=== PATIENT | female | born 1945 | race African-American/Black ===

== ENCOUNTER 2019-11-16 12:52 | Observation (INO) ==
[2019-11-16] MEDS ORDERED: methylPREDNISolone SOD SUC 125 MG/2 ML VIAL IV STA (13:24)
[2019-11-16] MEDS ORDERED: ONDANSETRON 4 MG/2 ML VIAL IV STA (13:24)
[2019-11-16] MEDS ORDERED: ALBUTEROL/IPRATROPIUM 3 ML NEB RESP TX STA (13:24)
[2019-11-16] MEDS ORDERED: FUROSEMIDE 100 MG/10 ML VIAL IV STA (13:24)
[2019-11-16 14:08] LABS: Basophils % 0.3 % (0.0-0.8); Eosinophils # 0.2 10*3/uL (0.0-0.87); Eosinophils % 3.1 % (0.00-10.9); Hemoglobin 11.2 GM/DL (12.0-16.0); Immature Granulocytes % 0.3 %; Immature Granulocytes Absolute 0.02 #; Lymphocytes # 1.5 10*3/uL (1.4-4.0); Lymphocytes % 22.4 % (21.3-54.2); Mean Corpuscular HGB Conc 30.3 GM/DL (32-36); Mean Corpuscular Volume 91.1 FL (87-102); Monocytes % 9.1 % (1.7-12.7); Neutrophils % 64.8 % (38.7-73.9); Platelet Count 249 T/CUMM (130-400); Red Blood Count 4.06 MC/CUMM (3.8-5.5); Red Cell Distribution Width 15.9 % (9.3-17.3); White Blood Count 6.8 T/CUMM (4-12)
[2019-11-16 14:34] LABS: Albumin 2.7 G/DL (3.4-5.0); Bilirubin,Total 0.4 MG/DL (0.2-1.0); Calcium 8.2 MG/DL (8.5-10.1); Osmolality,Calculated 275.7 MOS/KG (273-304); Total Protein 8.3 G/DL (6.4-8.3)
[2019-11-16] MEDS ORDERED: hydrALAZINE 20 MG/1 ML VIAL IV STA (15:30)
[2019-11-16] MEDS ORDERED: ACETAMINOPHEN 325 MG TABLET PO PRN (17:10)
[2019-11-16] MEDS ORDERED: ONDANSETRON 4 MG/2 ML VIAL IV PRN (17:10)
[2019-11-16] MEDS ORDERED: AZITHROMYCIN 250 MG TABLET PO STA (17:34)
[2019-11-16] MEDS: POTASSIUM CHLORIDE 10 MEQ TABLET PO SCH (21:47)
[2019-11-16] MEDS: cefTRIAXone 1,000 MG in SYRINGE 1 EACH IV SCH (21:47)
[2019-11-16] MEDS: ENOXAPARIN 40 MG/0.4 ML SYRINGE SUBCUT SCH (21:47)
[2019-11-17 05:54] LABS: Hemoglobin 11.4 GM/DL (12.0-16.0); Immature Granulocytes % 0.4 %; Immature Granulocytes Absolute 0.03 #; Lymphocytes # 1.1 10*3/uL (1.4-4.0); Lymphocytes % 13.1 % (21.3-54.2); Mean Corpuscular HGB Conc 30.8 GM/DL (32-36); Mean Corpuscular Volume 89.8 FL (87-102); Monocytes % 3.4 % (1.7-12.7); Neutrophils % 83.1 % (38.7-73.9); Platelet Count 251 T/CUMM (130-400); Red Blood Count 4.12 MC/CUMM (3.8-5.5); Red Cell Distribution Width 15.9 % (9.3-17.3); White Blood Count 8.3 T/CUMM (4-12)
[2019-11-17 06:15] LABS: Calcium 8.6 MG/DL (8.5-10.1); Osmolality,Calculated 275.8 MOS/KG (273-304); Risk Ratio 2.38; VLDL CHOLESTEROL 9.2 MG/DL
[2019-11-17 06:26] LABS: Apearance,Urine CLEAR (Clear); Bacteria,Urine Occasional /HPF (Few); Bilirubin,Urine Negative (Negative); Blood, Urine Negative (Negative); Glucose,Urine (UA) Negative (Negative); Ketones,Urine Negative (Negative); Mucus,Urine Occasional /LPF (Occasional); Nitrite,Urine Negative (Negative); Protein,Urine 30 MG/DL; RBC,Urine 3 /HPF (0-4); Squamous Epithelial Cell,Urine Occasional /HPF (0-10); Urine Color Yellow (Yellow); Urine Specific Gravity 1.036 (1.001-1.035); WBC,Urine 1 /HPF (0-6)
[2019-11-17] MEDS ORDERED: PANTOPRAZOLE 40 MG TABLET PO SCH (09:00)
[2019-11-17] MEDS: CITALOPRAM 40 MG TABLET PO SCH (10:13)
[2019-11-17] MEDS: POTASSIUM CHLORIDE 10 MEQ TABLET PO SCH ×2 (10:13→20:47)
[2019-11-17] MEDS: LOSARTAN 50 MG TABLET PO SCH (10:13)
[2019-11-17] MEDS: ENOXAPARIN 40 MG/0.4 ML SYRINGE SUBCUT SCH (10:13)
[2019-11-17] MEDS: FUROSEMIDE 20 MG TABLET PO SCH (10:13)
[2019-11-17] MEDS: cefTRIAXone 1,000 MG in SYRINGE 1 EACH IV SCH (10:14)
[2019-11-17] MEDS: rOPINIRole 4 MG TABLET PO SCH (10:14)
[2019-11-17] MEDS: AZITHROMYCIN 250 MG TABLET PO SCH (10:14)
[2019-11-17] MEDS: metOLazone 2.5 MG TABLET PO SCH (10:14)
[2019-11-17] MEDS: amLODIPine 10 MG TABLET PO SCH (10:14)
[2019-11-18 06:06] LABS: Basophils % 0.4 % (0.0-0.8); Eosinophils # 0.1 10*3/uL (0.0-0.87); Hematocrit 37.7 VOL% (35.7-47.0); Hemoglobin 11.5 GM/DL (12.0-16.0); Immature Granulocytes % 0.3 %; Immature Granulocytes Absolute 0.02 #; Lymphocytes # 2.1 10*3/uL (1.4-4.0); Lymphocytes % 29.6 % (21.3-54.2); Mean Corpuscular HGB Conc 30.5 GM/DL (32-36); Mean Corpuscular Volume 91.3 FL (87-102); Mean Platelet Volume 10.3 FL (9.6-12.0); Monocytes % 8.5 % (1.7-12.7); Neutrophils % 59.2 % (38.7-73.9); Platelet Count 258 T/CUMM (130-400); Red Blood Count 4.13 MC/CUMM (3.8-5.5); Red Cell Distribution Width 15.8 % (9.3-17.3); White Blood Count 6.9 T/CUMM (4-12)
[2019-11-18 06:16] LABS: Calcium 8.7 MG/DL (8.5-10.1); Osmolality,Calculated 272.1 MOS/KG (273-304)
[2019-11-18] MEDS: CITALOPRAM 40 MG TABLET PO SCH (09:27)
[2019-11-18] MEDS: POTASSIUM CHLORIDE 10 MEQ TABLET PO SCH (09:27)
[2019-11-18] MEDS: LOSARTAN 50 MG TABLET PO SCH (09:27)
[2019-11-18] MEDS: ENOXAPARIN 40 MG/0.4 ML SYRINGE SUBCUT SCH (09:27)
[2019-11-18] MEDS: FUROSEMIDE 20 MG TABLET PO SCH (09:27)
[2019-11-18] MEDS: rOPINIRole 4 MG TABLET PO SCH (09:28)
[2019-11-18] MEDS: amLODIPine 10 MG TABLET PO SCH (09:28)
[2019-11-18] MEDS: cefTRIAXone 1,000 MG in SYRINGE 1 EACH IV SCH (09:28)
[2019-11-18] MEDS: metOLazone 2.5 MG TABLET PO SCH (09:28)
[2019-11-18] MEDS: AZITHROMYCIN 250 MG TABLET PO SCH (09:28)
[2019-11-18 12:23] VITALS: BP 128/70
== END 2019-11-18 13:45 | disposition home or self-care (01) ==
LOC: EDUNIT# → EDBD → N.EDINP 12:52 → N.ED 12:52 → SUATTDRO 17:06 → SUPCPDRO 17:06 → N.2E 17:34 → N.2W 11-17 08:43
PROVIDERS: ADMIT Internal Medicine; ATTEND Internal Medicine

== ENCOUNTER 2019-11-20 19:31 | Inpatient (IN) ==
[2019-11-20] MEDS ORDERED: ALBUTEROL/IPRATROPIUM 3 ML NEB RESP TX STA (19:56)
[2019-11-20] MEDS ORDERED: ONDANSETRON 4 MG/2 ML VIAL IV STA (19:56)
[2019-11-20] MEDS ORDERED: methylPREDNISolone SOD SUC 125 MG/2 ML VIAL IV STA (19:56)
[2019-11-20 20:53] LABS: Basophils % 0.2 % (0.0-0.8); Eosinophils # 0.2 10*3/uL (0.0-0.87); Eosinophils % 2.1 % (0.00-10.9); Hematocrit 36.9 VOL% (35.7-47.0); Hemoglobin 11.3 GM/DL (12.0-16.0); Immature Granulocytes % 0.4 %; Immature Granulocytes Absolute 0.03 #; Lymphocytes # 1.2 10*3/uL (1.4-4.0); Lymphocytes % 14.7 % (21.3-54.2); Mean Corpuscular HGB Conc 30.6 GM/DL (32-36); Mean Corpuscular Volume 90.4 FL (87-102); Mean Platelet Volume 9.4 FL (9.6-12.0); Monocytes % 8.4 % (1.7-12.7); Neutrophils % 74.2 % (38.7-73.9); Platelet Count 260 T/CUMM (130-400); Red Blood Count 4.08 MC/CUMM (3.8-5.5); Red Cell Distribution Width 15.9 % (9.3-17.3); White Blood Count 8.1 T/CUMM (4-12)
[2019-11-20 21:09] LABS: INR 1.1; PT Patient Result 11.6 SECS (9.8-11.9); Partial Thromboplastin Time 29.4 SECS (23.9-33.8)
[2019-11-20 21:14] LABS: Alanine Aminotransferase 15 U/L (13-56); Albumin 2.6 G/DL (3.4-5.0); Alkaline Phosphatase 75 U/L (45-117); Aspartate Amino Transferase 16 U/L (0-37); Blood Urea Nitrogen 51 MG/DL (7-18); Calcium 8.6 MG/DL (8.5-10.1); Estimated Glom Filtration Rate 60 ML/MIN; Ferritin 82.5 ng/ml (8-252); Glucose 108 MG/DL (74-106); Osmolality,Calculated 287.8 MOS/KG (273-304); Total Protein 8.7 G/DL (6.4-8.3); Troponin I < 0.015 NG/ML (0.00-0.045)
[2019-11-20 21:38] LABS: Apearance,Urine Slightly Hazy (Clear); Bilirubin,Urine Negative (Negative); Blood, Urine Negative (Negative); Glucose,Urine (UA) Negative (Negative); Hyaline Casts,Urine 3 /LPF (0-3); Ketones,Urine Negative (Negative); Mucus,Urine Occasional /LPF (Occasional); Nitrite,Urine Negative (Negative); Protein,Urine Negative; RBC,Urine <1 /HPF (0-4); Squamous Epithelial Cell,Urine Occasional /HPF (0-10); Urine Color Yellow (Yellow); Urine Specific Gravity 1.018 (1.001-1.035); Urine Urobilinogen < 2.0 EU/DL (0.2-1.0); WBC,Urine <1 /HPF (0-6)
[2019-11-20] MEDS ORDERED: AZITHROMYCIN INJ 500 MG in SODIUM CHLORIDE 0.9% 250 ML IV STA (22:11)
[2019-11-20] MEDS ORDERED: DEXTROSE 50% 25 GM/50 ML VIAL IV PRN (23:57)
[2019-11-20] MEDS ORDERED: hydrALAZINE 20 MG/1 ML VIAL IV PRN (23:57)
[2019-11-20] MEDS ORDERED: ONDANSETRON 4 MG/2 ML VIAL IV PRN (23:57)
[2019-11-20] MEDS ORDERED: GLUCAGON 1 MG VIAL IM PRN (23:57)
[2019-11-20] MEDS ORDERED: MORPHINE 4 MG/1 ML VIAL IV PRN (23:57)
[2019-11-20] MEDS ORDERED: DOCUSATE SODIUM 100 MG CAPSULE PO PRN (23:57)
[2019-11-20] MEDS ORDERED: diphenhydrAMINE CAP 25 MG CAPSULE PO PRN (23:57)
[2019-11-20] MEDS ORDERED: ACETAMINOPHEN 325 MG TABLET PO PRN (23:57)
[2019-11-20] MEDS ORDERED: ZALEPLON 5 MG CAPSULE PO PRN (23:57)
[2019-11-20] MEDS ORDERED: PROMETHAZINE 25 MG/1 ML VIAL IM PRN (23:57)
[2019-11-20] MEDS ORDERED: guaiFENesin/DM ER 600-30 MG TABLET PO PRN (23:57)
[2019-11-20] MEDS ORDERED: NICOTINE 21 MG/24 HR PATCH TRANSDERM PRN (23:57)
[2019-11-21] MEDS ORDERED: AZITHROMYCIN INJ 500 MG in SODIUM CHLORIDE 0.9% 250 ML IV SCH (00:30)
[2019-11-21] MEDS: ALBUTEROL/IPRATROPIUM 3 ML NEB RESP TX SCH ×3 (03:18→11:38)
[2019-11-21 03:34] LABS: ABG Base Excess 4.4 MMOL/L (-2.5-2.5); ABG HCO3 28.3 MMOL/L (20-26); ABG Oxygen Saturation 94.5 % (95-100); ABG PCO2 52.5 MM HG (35-48); ABG PH 7.377 (7.35-7.45); ABG PO2 76.5 MM HG (80-95); ABG TCO2 27.5 MMOL/L (23-27); Allen Test Positive
[2019-11-21 06:04] LABS: Basophils % 0.1 % (0.0-0.8); Hematocrit 36.7 VOL% (35.7-47.0); Hemoglobin 11.2 GM/DL (12.0-16.0); Immature Granulocytes % 0.4 %; Immature Granulocytes Absolute 0.04 #; Lymphocytes # 0.6 10*3/uL (1.4-4.0); Lymphocytes % 6.7 % (21.3-54.2); Mean Corpuscular HGB Conc 30.5 GM/DL (32-36); Mean Corpuscular Volume 89.3 FL (87-102); Mean Platelet Volume 9.3 FL (9.6-12.0); Monocytes % 0.7 % (1.7-12.7); Neutrophils % 92.1 % (38.7-73.9); Platelet Count 261 T/CUMM (130-400); Red Blood Count 4.11 MC/CUMM (3.8-5.5); Red Cell Distribution Width 16.1 % (9.3-17.3); White Blood Count 9.6 T/CUMM (4-12)
[2019-11-21 06:24] LABS: Albumin 2.4 G/DL (3.4-5.0); Bilirubin,Total 0.5 MG/DL (0.2-1.0); Osmolality,Calculated 289.7 MOS/KG (273-304); Total Protein 8.7 G/DL (6.4-8.3)
[2019-11-21 06:35] LABS: Band Neutrophils 1 % (0-10); Hypochromasia 1+; Lymphocytes 8 % (20-55); Platelet Estimate Adequate; Segmented Neutrophils 90 % (50-85); Total Cells Counted 100
[2019-11-21 07:43] VITALS: BP 139/81
[2019-11-21] MEDS ORDERED: CEFEPIME 2,000 MG in SODIUM CHLORIDE 0.9% 100 ML IV SCH (08:00)
[2019-11-21] MEDS ORDERED: CEFEPIME 1,000 MG in SODIUM CHLORIDE 0.9% 100 ML IV SCH (08:00)
[2019-11-21] MEDS ORDERED: ENOXAPARIN 40 MG/0.4 ML SYRINGE SUBCUT SCH (08:00)
[2019-11-21] MEDS ORDERED: CITALOPRAM 40 MG TABLET PO SCH (09:00)
[2019-11-21] MEDS ORDERED: PANTOPRAZOLE 40 MG TABLET PO SCH (09:00)
[2019-11-21] MEDS ORDERED: AZITHROMYCIN 250 MG TABLET PO SCH (09:00)
[2019-11-21] MEDS ORDERED: FUROSEMIDE 20 MG TABLET PO SCH (09:00)
[2019-11-21] MEDS ORDERED: POTASSIUM CHLORIDE 10 MEQ TABLET PO SCH (09:00)
[2019-11-21] MEDS ORDERED: amLODIPine 10 MG TABLET PO SCH (09:00)
== END 2019-11-21 13:17 | disposition home health service (06) | DRG 190 ==
LOC: EDUNIT# → N.ED 19:31 → N.EDINP 23:57 → N.5E 11-21 00:31
PROVIDERS: ADMIT Internal Medicine Geriatric Medicine; ATTEND Internal Medicine Geriatric Medicine

== ENCOUNTER 2019-12-16 22:51 | Observation (INO) ==
[2019-12-16] MEDS ORDERED: NITROGLYCERIN 2% OINT 1 INCH/GM PACK TOP STA (23:26)
[2019-12-16] MEDS ORDERED: hydrALAZINE 20 MG/1 ML VIAL IV STA (23:26)
[2019-12-16] MEDS ORDERED: FUROSEMIDE 100 MG/10 ML VIAL IV STA (23:26)
[2019-12-16] MEDS ORDERED: methylPREDNISolone SOD SUC 125 MG/2 ML VIAL IV STA (23:26)
[2019-12-16] MEDS ORDERED: ALBUTEROL/IPRATROPIUM 3 ML NEB RESP TX STA (23:26)
[2019-12-16] MEDS ORDERED: ONDANSETRON 4 MG/2 ML VIAL IV STA (23:26)
[2019-12-16 23:44] LABS: Basophils % 0.3 % (0.0-0.8); Eosinophils # 0.2 10*3/uL (0.0-0.87); Eosinophils % 3.8 % (0.00-10.9); Hematocrit 36.9 VOL% (35.7-47.0); Hemoglobin 10.9 GM/DL (12.0-16.0); Immature Granulocytes % 0.3 %; Immature Granulocytes Absolute 0.02 #; Lymphocytes % 32.9 % (21.3-54.2); Mean Corpuscular HGB Conc 29.5 GM/DL (32-36); Mean Platelet Volume 8.9 FL (9.6-12.0); Monocytes % 12.9 % (1.7-12.7); Neutrophils % 49.8 % (38.7-73.9); Platelet Count 255 T/CUMM (130-400); Red Blood Count 4.01 MC/CUMM (3.8-5.5); Red Cell Distribution Width 15.9 % (9.3-17.3); White Blood Count 6.1 T/CUMM (4-12)
[2019-12-16 23:54] LABS: INR 1.1; PT Patient Result 11.5 SECS (9.8-11.9)
[2019-12-17 00:36] LABS: Alanine Aminotransferase 14 U/L (13-56); Albumin 2.6 G/DL (3.4-5.0); Alkaline Phosphatase 90 U/L (45-117); Aspartate Amino Transferase 21 U/L (0-37); Bilirubin,Total < 0.39 MG/DL (0.2-1.0); Blood Urea Nitrogen 20 MG/DL (7-18); Calcium 8.8 MG/DL (8.5-10.1); Estimated Glom Filtration Rate 104 ML/MIN; Glucose 84 MG/DL (74-106)
[2019-12-17] MEDS ORDERED: POTASSIUM CHLORIDE 20 MEQ TABLET PO STA (00:40)
[2019-12-17 00:44] LABS: Apearance,Urine CLEAR (Clear); Bilirubin,Urine Negative (Negative); Blood, Urine Negative (Negative); Glucose,Urine (UA) Negative (Negative); Hyaline Casts,Urine 4 /LPF (0-3); Ketones,Urine Negative (Negative); Mucus,Urine Occasional /LPF (Occasional); Nitrite,Urine Negative (Negative); Protein,Urine Negative; RBC,Urine 1 /HPF (0-4); Squamous Epithelial Cell,Urine Occasional /HPF (0-10); Urine Color Yellow (Yellow); Urine Urobilinogen < 2.0 EU/DL (0.2-1.0); WBC,Urine <1 /HPF (0-6)
[2019-12-17] MEDS ORDERED: PIPERACILLIN/TAZOBACTAM 3,375 MG in SODIUM CHLORIDE 0.9% 100 ML IV STA (02:07)
[2019-12-17] MEDS ORDERED: guaiFENesin/DM ER 600-30 MG TABLET PO PRN (02:35)
[2019-12-17] MEDS ORDERED: GLUCAGON 1 MG VIAL IM PRN (02:35)
[2019-12-17] MEDS ORDERED: ACETAMINOPHEN 325 MG TABLET PO PRN (02:35)
[2019-12-17] MEDS ORDERED: diphenhydrAMINE CAP 25 MG CAPSULE PO PRN (02:35)
[2019-12-17] MEDS ORDERED: NICOTINE 21 MG/24 HR PATCH TRANSDERM PRN (02:35)
[2019-12-17] MEDS ORDERED: hydrALAZINE 20 MG/1 ML VIAL IV PRN (02:35)
[2019-12-17] MEDS ORDERED: ONDANSETRON 4 MG/2 ML VIAL IV PRN (02:35)
[2019-12-17] MEDS ORDERED: DEXTROSE 10% 250 ML BAG IV PRN (02:55)
[2019-12-17] MEDS ORDERED: ENOXAPARIN 150 MG/ML SYRINGE SUBCUT ONE (06:45)
[2019-12-17 08:48] LABS: Basophils % 0.2 % (0.0-0.8); Hematocrit 37.4 VOL% (35.7-47.0); Hemoglobin 11.2 GM/DL (12.0-16.0); Immature Granulocytes % 0.4 %; Immature Granulocytes Absolute 0.02 #; Lymphocytes # 0.8 10*3/uL (1.4-4.0); Lymphocytes % 16.1 % (21.3-54.2); Mean Corpuscular HGB Conc 29.9 GM/DL (32-36); Mean Corpuscular Volume 91.2 FL (87-102); Mean Platelet Volume 9.4 FL (9.6-12.0); Monocytes % 0.4 % (1.7-12.7); Neutrophils % 82.9 % (38.7-73.9); Platelet Count 267 T/CUMM (130-400); Red Cell Distribution Width 15.8 % (9.3-17.3); White Blood Count 4.8 T/CUMM (4-12)
[2019-12-17] MEDS ORDERED: FUROSEMIDE 40 MG/4 ML VIAL IV SCH (09:00)
[2019-12-17 09:25] LABS: Calcium 8.7 MG/DL (8.5-10.1); Osmolality,Calculated 273.4 MOS/KG (273-304)
[2019-12-17] MEDS: PIPERACILLIN/TAZOBACTAM 3,375 MG in SODIUM CHLORIDE 0.9% 100 ML IV SCH ×2 (10:07→17:46)
[2019-12-17] MEDS: OMEGA 3 ACID ETHYL ESTERS 1 GM CAPSULE PO SCH ×2 (10:16→21:14)
[2019-12-17] MEDS: carvediloL 6.25 MG TABLET PO SCH ×2 (10:17→21:15)
[2019-12-17] MEDS: hydroCHLOROthiazide 25 MG TABLET PO SCH (10:17)
[2019-12-17] MEDS: LOSARTAN 50 MG TABLET PO SCH (10:17)
[2019-12-17] MEDS ORDERED: POTASSIUM CHLORIDE 20 MEQ TABLET PO ONE (10:27)
[2019-12-17] MEDS ORDERED: MAGNESIUM SULF RIDER 2 GM in PREMIX 1 EACH IV ONE (10:28)
[2019-12-17] MEDS: ASPIRIN EC 81 MG TABLET PO SCH (14:16)
[2019-12-17] MEDS: FUROSEMIDE 40 MG/4 ML VIAL IV SCH (16:04)
[2019-12-17] MEDS: BACLOFEN 10 MG TABLET PO SCH (16:05)
[2019-12-17] MEDS: CITALOPRAM 40 MG TABLET PO SCH (16:05)
[2019-12-17] MEDS: ALBUTEROL/IPRATROPIUM 3 ML NEB RESP TX SCH (19:12)
[2019-12-17] MEDS ORDERED: rOPINIRole 4 MG TABLET PO SCH (21:00)
[2019-12-17] MEDS: POTASSIUM CHLORIDE 20 MEQ TABLET PO SCH (21:14)
[2019-12-17] MEDS: FUROSEMIDE 20 MG TABLET PO SCH (21:15)
[2019-12-18] MEDS: ALBUTEROL/IPRATROPIUM 3 ML NEB RESP TX SCH ×3 (01:17→13:02)
[2019-12-18] MEDS: PIPERACILLIN/TAZOBACTAM 3,375 MG in SODIUM CHLORIDE 0.9% 100 ML IV SCH ×2 (03:26→10:24)
[2019-12-18 06:28] LABS: Basophils % 0.1 % (0.0-0.8); Eosinophils % 0.1 % (0.00-10.9); Hematocrit 34.5 VOL% (35.7-47.0); Hemoglobin 10.3 GM/DL (12.0-16.0); Immature Granulocytes % 0.3 %; Immature Granulocytes Absolute 0.02 #; Lymphocytes # 2.1 10*3/uL (1.4-4.0); Lymphocytes % 27.8 % (21.3-54.2); Mean Corpuscular HGB Conc 29.9 GM/DL (32-36); Mean Corpuscular Volume 91.8 FL (87-102); Mean Platelet Volume 9.2 FL (9.6-12.0); Monocytes % 10.8 % (1.7-12.7); Neutrophils % 60.9 % (38.7-73.9); Platelet Count 249 T/CUMM (130-400); Red Blood Count 3.76 MC/CUMM (3.8-5.5); Red Cell Distribution Width 15.9 % (9.3-17.3); White Blood Count 7.5 T/CUMM (4-12)
[2019-12-18 06:54] LABS: Calcium 8.3 MG/DL (8.5-10.1); Osmolality,Calculated 276.8 MOS/KG (273-304)
[2019-12-18] MEDS: BACLOFEN 10 MG TABLET PO SCH (08:10)
[2019-12-18] MEDS: LOSARTAN 50 MG TABLET PO SCH (08:10)
[2019-12-18] MEDS: ASPIRIN EC 81 MG TABLET PO SCH (08:11)
[2019-12-18] MEDS: carvediloL 6.25 MG TABLET PO SCH (08:11)
[2019-12-18] MEDS: hydroCHLOROthiazide 25 MG TABLET PO SCH (08:11)
[2019-12-18] MEDS: POTASSIUM CHLORIDE 20 MEQ TABLET PO SCH (08:11)
[2019-12-18] MEDS: FUROSEMIDE 40 MG/4 ML VIAL IV SCH (08:11)
[2019-12-18] MEDS: CITALOPRAM 40 MG TABLET PO SCH (08:11)
[2019-12-18] MEDS: OMEGA 3 ACID ETHYL ESTERS 1 GM CAPSULE PO SCH (08:11)
[2019-12-18] MEDS: FUROSEMIDE 20 MG TABLET PO SCH (08:12)
[2019-12-18] MEDS ORDERED: FUROSEMIDE 40 MG TABLET PO SCH (09:56)
[2019-12-18 13:02] VITALS: BP 132/59
== END 2019-12-18 15:25 | disposition home or self-care (01) ==
LOC: EDUNIT# → EDBD → N.EDINP 22:51 → N.ED 22:51 → N.EDINP 12-17 03:57 → N.3E 12-17 04:14
PROVIDERS: ADMIT Internal Medicine Geriatric Medicine; ATTEND Internal Medicine Geriatric Medicine

== ENCOUNTER 2020-04-11 20:10 | Observation (INO) ==
[2020-04-11 20:30] LABS: Basophils % 0.4 % (0.0-0.8); Eosinophils # 0.2 10*3/uL (0.0-0.87); Eosinophils % 3.5 % (0.00-10.9); Hematocrit 37.1 VOL% (35.7-47.0); Hemoglobin 11.2 GM/DL (12.0-16.0); Immature Granulocytes % 0.4 %; Immature Granulocytes Absolute 0.02 #; Lymphocytes # 1.5 10*3/uL (1.4-4.0); Lymphocytes % 31.4 % (21.3-54.2); Mean Corpuscular HGB Conc 30.2 GM/DL (32-36); Mean Corpuscular Volume 89.6 FL (87-102); Mean Platelet Volume 9.2 FL (9.6-12.0); Neutrophils % 55.3 % (38.7-73.9); Platelet Count 253 T/CUMM (130-400); Red Blood Count 4.14 MC/CUMM (3.8-5.5); Red Cell Distribution Width 15.8 % (9.3-17.3); White Blood Count 4.9 T/CUMM (4-12)
[2020-04-11] MEDS ORDERED: NITROGLYCERIN 2% OINT 1 INCH/GM PACK TOP STA (20:46)
[2020-04-11] MEDS ORDERED: ONDANSETRON 4 MG/2 ML VIAL IV STA (20:46)
[2020-04-11] MEDS ORDERED: ASPIRIN 325 MG TABLET PO STA (20:46)
[2020-04-11] MEDS ORDERED: MORPHINE 4 MG/1 ML VIAL IV STA (20:46)
[2020-04-11] MEDS ORDERED: FUROSEMIDE 40 MG/4 ML VIAL IV STA (20:46)
[2020-04-11 20:51] LABS: Alanine Aminotransferase 11 U/L (13-56); Albumin 2.4 G/DL (3.4-5.0); Alkaline Phosphatase 76 U/L (45-117); Aspartate Amino Transferase 15 U/L (0-37); Bilirubin,Total < 0.39 MG/DL (0.2-1.0); Blood Urea Nitrogen 12 MG/DL (7-18); Calcium 8.9 MG/DL (8.5-10.1); Estimated Glom Filtration Rate 134 ML/MIN; Glucose 95 MG/DL (74-106); Osmolality,Calculated 274.7 MOS/KG (273-304); Total Protein 8.5 G/DL (6.4-8.3)
[2020-04-11] MEDS ORDERED: hydrALAZINE 20 MG/1 ML VIAL IV STA ×2 (21:12→21:58)
[2020-04-11 21:25] LABS: INR 1.1; PT Patient Result 11.4 SECS (9.8-11.9)
[2020-04-11] MEDS ORDERED: ENOXAPARIN 100 MG/ML SYRINGE SUBCUT STA (21:37)
[2020-04-11] MEDS ORDERED: hydrALAZINE 20 MG/1 ML VIAL IV PRN (22:06)
[2020-04-11] MEDS ORDERED: ONDANSETRON 4 MG/2 ML VIAL IV PRN (22:06)
[2020-04-11] MEDS ORDERED: ACETAMINOPHEN 325 MG TABLET PO PRN (22:06)
[2020-04-11] MEDS ORDERED: GLUCAGON 1 MG VIAL IM PRN (22:06)
[2020-04-11] MEDS ORDERED: MORPHINE 4 MG/1 ML VIAL IV PRN (22:06)
[2020-04-11] MEDS ORDERED: DEXTROSE 50% 25 GM/50 ML VIAL IV PRN (22:06)
[2020-04-11 23:49] LABS: Apearance,Urine CLEAR (Clear); Bacteria,Urine Occasional /HPF (Few); Bilirubin,Urine Negative (Negative); Blood, Urine Negative (Negative); Glucose,Urine (UA) Negative (Negative); Ketones,Urine Negative (Negative); Mucus,Urine Occasional /LPF (Occasional); Nitrite,Urine Negative (Negative); Protein,Urine Negative; RBC,Urine 1 /HPF (0-4); Urine Color Colorless (Yellow); Urine Urobilinogen < 2.0 EU/DL (0.2-1.0); WBC,Urine <1 /HPF (0-6)
[2020-04-12] MEDS ORDERED: VANCOMYCIN INJ 2,000 MG in SODIUM CHLORIDE 0.9% 500 ML IV SCH (03:00)
[2020-04-12 06:04] LABS: Basophils % 0.2 % (0.0-0.8); Eosinophils # 0.2 10*3/uL (0.0-0.87); Eosinophils % 3.8 % (0.00-10.9); Hematocrit 35.6 VOL% (35.7-47.0); Hemoglobin 10.8 GM/DL (12.0-16.0); Immature Granulocytes % 0.5 %; Immature Granulocytes Absolute 0.02 #; Lymphocytes # 1.4 10*3/uL (1.4-4.0); Lymphocytes % 33.4 % (21.3-54.2); Mean Corpuscular HGB Conc 30.3 GM/DL (32-36); Mean Corpuscular Volume 89.9 FL (87-102); Mean Platelet Volume 9.2 FL (9.6-12.0); Monocytes % 10.3 % (1.7-12.7); Neutrophils % 51.8 % (38.7-73.9); Platelet Count 239 T/CUMM (130-400); Red Blood Count 3.96 MC/CUMM (3.8-5.5); Red Cell Distribution Width 15.9 % (9.3-17.3); White Blood Count 4.2 T/CUMM (4-12)
[2020-04-12 06:25] LABS: Albumin 2.3 G/DL (3.4-5.0); Bilirubin,Total 1.1 MG/DL (0.2-1.0); Calcium 8.4 MG/DL (8.5-10.1); Osmolality,Calculated 278.4 MOS/KG (273-304); Total Protein 8.1 G/DL (6.4-8.3)
[2020-04-12] MEDS ORDERED: cefTRIAXone 1,000 MG in SYRINGE 1 EACH IV SCH (08:00)
[2020-04-12 08:50] LABS: Troponin I < 0.015 NG/ML (0.00-0.045)
[2020-04-12] MEDS ORDERED: PANTOPRAZOLE 40 MG TABLET PO SCH (09:00)
[2020-04-12] MEDS ORDERED: ENOXAPARIN 150 MG/ML SYRINGE SUBCUT SCH (09:00)
[2020-04-12] MEDS ORDERED: ASPIRIN 325 MG TABLET PO SCH (09:00)
[2020-04-12] MEDS ORDERED: BACITRACIN OINT 0.9 GM PACK TOP SCH (11:00)
[2020-04-12] MEDS ORDERED: POTASSIUM CHLORIDE 20 MEQ TABLET PO ONE (11:09)
[2020-04-12] MEDS ORDERED: LOSARTAN 50 MG TABLET PO SCH (11:15)
[2020-04-12] MEDS ORDERED: FUROSEMIDE 20 MG TABLET PO SCH (11:30)
[2020-04-12 11:49] VITALS: BP 122/55
[2020-04-12] MEDS ORDERED: carvediloL 6.25 MG TABLET PO SCH (17:00)
== END 2020-04-12 13:40 | disposition home health service (06) ==
LOC: N.EDINP 20:10 → N.ED 20:10 → N.3E 23:50
PROVIDERS: ADMIT Internal Medicine; ATTEND Internal Medicine

== ENCOUNTER 2021-02-11 14:42 | Observation (INO) ==
[2021-02-11 15:15] LABS: Basophils % 0.4 % (0.0-0.8); Eosinophils # 0.2 10*3/uL (0.0-0.87); Eosinophils % 3.1 % (0.00-10.9); Hematocrit 37.1 VOL% (35.7-47.0); Hemoglobin 11.1 GM/DL (12.0-16.0); Immature Granulocytes % 0.2 %; Immature Granulocytes Absolute 0.01 #; Lymphocytes # 1.5 10*3/uL (1.4-4.0); Lymphocytes % 30.3 % (21.3-54.2); Mean Corpuscular HGB Conc 29.9 GM/DL (32-36); Mean Corpuscular Volume 90.7 FL (87-102); Mean Platelet Volume 8.8 FL (9.6-12.0); Monocytes % 11.8 % (1.7-12.7); Neutrophils % 54.2 % (38.7-73.9); Platelet Count 257 T/CUMM (130-400); Red Blood Count 4.09 MC/CUMM (3.8-5.5); White Blood Count 5.1 T/CUMM (4-12)
[2021-02-11 15:40] LABS: Alanine Aminotransferase 11 U/L (13-56); Albumin 2.5 G/DL (3.4-5.0); Alkaline Phosphatase 91 U/L (45-117); Aspartate Amino Transferase 14 U/L (0-37); Bilirubin,Total < 0.39 MG/DL (0.2-1.0); Blood Urea Nitrogen 17 MG/DL (7-18); Calcium 8.1 MG/DL (8.5-10.1); Carbon Dioxide 31 MMOL/L (21-32); Estimated Glom Filtration Rate 101 ML/MIN; Glucose 63 MG/DL (74-106); Osmolality,Calculated 282.1 MOS/KG (273-304); Potassium 3.7 MMOL/L (3.5-5.1); Sodium 142 MMOL/L (136-145); Total Protein 8.2 G/DL (6.4-8.2)
[2021-02-11] MEDS ORDERED: ALBUTEROL 2.5 MG/3 ML NEB RESP TX STA ×2 (16:33→17:17)
[2021-02-11] MEDS ORDERED: methylPREDNISolone SOD SUC 125 MG/2 ML VIAL IV STA (16:33)
[2021-02-11] MEDS ORDERED: LEVOFLOXACIN INJ 500 MG/100 ML PREMIX IV STA (16:36)
[2021-02-11] MEDS ORDERED: hydrALAZINE 20 MG/1 ML VIAL IV PRN (17:46)
[2021-02-11] MEDS ORDERED: diphenhydrAMINE CAP 25 MG CAPSULE PO PRN (17:46)
[2021-02-11] MEDS ORDERED: MORPHINE 4 MG/1 ML VIAL IV PRN (17:46)
[2021-02-11] MEDS ORDERED: GLUCAGON 1 MG VIAL IM PRN (17:46)
[2021-02-11] MEDS ORDERED: ZALEPLON 5 MG CAPSULE PO PRN (17:46)
[2021-02-11] MEDS ORDERED: ONDANSETRON 4 MG/2 ML VIAL IV PRN (17:46)
[2021-02-11] MEDS ORDERED: DEXTROSE 50% 25 GM/50 ML VIAL IV PRN (17:46)
[2021-02-11] MEDS ORDERED: NICOTINE 21 MG/24 HR PATCH TRANSDERM PRN (17:46)
[2021-02-11] MEDS ORDERED: FUROSEMIDE 40 MG/4 ML VIAL IV STA (17:49)
[2021-02-11] MEDS: ENOXAPARIN 40 MG/0.4 ML SYRINGE SUBCUT SCH (18:12)
[2021-02-11] MEDS: methylPREDNISolone SOD SUC 40 MG/1 ML VIAL IV SCH ×2 (18:34→23:34)
[2021-02-11] MEDS: LEVOFLOXACIN INJ 750 MG/150 ML PREMIX IV SCH (18:35)
[2021-02-11] MEDS: guaiFENesin/DM ER 600-30 MG TABLET PO PRN (21:22)
[2021-02-11] MEDS: DOCUSATE SODIUM 100 MG CAPSULE PO SCH (21:22)
[2021-02-11] MEDS: ARFORMOTEROL 15 MCG/2 ML NEB RESP TX SCH (21:33)
[2021-02-11] MEDS: BUDESONIDE 0.5 MG/2 ML NEB RESP TX SCH (21:33)
[2021-02-11] MEDS: ALBUTEROL/IPRATROPIUM 3 ML NEB RESP TX SCH (21:33)
[2021-02-11] MEDS ORDERED: IPRATROPIUM 0.06% NASAL SPRAY 15 ML BOTTLE BOTH NARES PRN (22:12)
[2021-02-12] MEDS: ALBUTEROL/IPRATROPIUM 3 ML NEB RESP TX SCH ×4 (01:00→19:57)
[2021-02-12 04:44] LABS: Basophils % 0.2 % (0.0-0.8); Hematocrit 39.2 VOL% (35.7-47.0); Hemoglobin 12.1 GM/DL (12.0-16.0); Immature Granulocytes % 0.5 %; Immature Granulocytes Absolute 0.03 #; Lymphocytes # 0.8 10*3/uL (1.4-4.0); Mean Corpuscular HGB Conc 30.9 GM/DL (32-36); Mean Corpuscular Volume 89.1 FL (87-102); Mean Platelet Volume 9.4 FL (9.6-12.0); Monocytes % 0.8 % (1.7-12.7); Neutrophils % 86.5 % (38.7-73.9); Platelet Count 279 T/CUMM (130-400); Red Cell Distribution Width 15.8 % (9.3-17.3); White Blood Count 6.6 T/CUMM (4-12)
[2021-02-12 04:57] LABS: Calcium 8.7 MG/DL (8.5-10.1); Osmolality,Calculated 278.8 MOS/KG (273-304); Potassium 3.3 MMOL/L (3.5-5.1)
[2021-02-12 05:12] LABS: Hypochromasia 2+; Platelet Estimate Normal
[2021-02-12] MEDS: methylPREDNISolone SOD SUC 40 MG/1 ML VIAL IV SCH ×3 (05:15→18:12)
[2021-02-12] MEDS: ARFORMOTEROL 15 MCG/2 ML NEB RESP TX SCH ×2 (07:12→19:57)
[2021-02-12] MEDS: BUDESONIDE 0.5 MG/2 ML NEB RESP TX SCH ×2 (07:12→19:57)
[2021-02-12] MEDS ORDERED: FUROSEMIDE 40 MG/4 ML VIAL IV SCH (09:00)
[2021-02-12] MEDS: DOCUSATE SODIUM 100 MG CAPSULE PO SCH ×2 (10:26→21:24)
[2021-02-12] MEDS: POTASSIUM CHLORIDE 20 MEQ TABLET PO PRN ×3 (10:26→14:35)
[2021-02-12] MEDS: ENOXAPARIN 40 MG/0.4 ML SYRINGE SUBCUT SCH (18:12)
[2021-02-12] MEDS: guaiFENesin/DM ER 600-30 MG TABLET PO PRN (18:13)
[2021-02-12] MEDS: ACETAMINOPHEN 325 MG TABLET PO PRN (18:13)
[2021-02-12] MEDS: LEVOFLOXACIN INJ 750 MG/150 ML PREMIX IV SCH (18:17)
[2021-02-13] MEDS: methylPREDNISolone SOD SUC 40 MG/1 ML VIAL IV SCH ×3 (00:24→11:50)
[2021-02-13] MEDS: ALBUTEROL/IPRATROPIUM 3 ML NEB RESP TX SCH ×3 (01:04→12:39)
[2021-02-13 05:37] LABS: Basophils % 0.1 % (0.0-0.8); Hemoglobin 11.9 GM/DL (12.0-16.0); Immature Granulocytes % 0.9 %; Immature Granulocytes Absolute 0.09 #; Lymphocytes # 0.7 10*3/uL (1.4-4.0); Lymphocytes % 7.2 % (21.3-54.2); Mean Corpuscular HGB Conc 31.3 GM/DL (32-36); Mean Corpuscular Volume 87.6 FL (87-102); Neutrophils % 88.8 % (38.7-73.9); Platelet Count 269 T/CUMM (130-400); Red Blood Count 4.34 MC/CUMM (3.8-5.5); Red Cell Distribution Width 15.9 % (9.3-17.3); White Blood Count 9.9 T/CUMM (4-12)
[2021-02-13 05:57] LABS: Alanine Aminotransferase 11 U/L (13-56); Albumin 2.3 G/DL (3.4-5.0); Alkaline Phosphatase 79 U/L (45-117); Aspartate Amino Transferase 17 U/L (0-37); Bilirubin,Total < 0.39 MG/DL (0.2-1.0); Blood Urea Nitrogen 27 MG/DL (7-18); Calcium 8.8 MG/DL (8.5-10.1); Carbon Dioxide 30 MMOL/L (21-32); Estimated Glom Filtration Rate 105 ML/MIN; Glucose 136 MG/DL (74-106); Potassium 3.8 MMOL/L (3.5-5.1); Sodium 136 MMOL/L (136-145); Total Protein 8.3 G/DL (6.4-8.2)
[2021-02-13] MEDS: ARFORMOTEROL 15 MCG/2 ML NEB RESP TX SCH (07:05)
[2021-02-13] MEDS: BUDESONIDE 0.5 MG/2 ML NEB RESP TX SCH (07:05)
[2021-02-13] MEDS ORDERED: LOSARTAN 50 MG TABLET PO SCH (09:00)
[2021-02-13] MEDS ORDERED: FUROSEMIDE 40 MG TABLET PO SCH (09:00)
[2021-02-13] MEDS ORDERED: CITALOPRAM 40 MG TABLET PO SCH (09:00)
[2021-02-13] MEDS: ACETAMINOPHEN 325 MG TABLET PO PRN (09:13)
[2021-02-13] MEDS: DOCUSATE SODIUM 100 MG CAPSULE PO SCH (09:13)
[2021-02-13] MEDS ORDERED: MIDAZOLAM 2 MG/2 ML VIAL ONE (11:50)
[2021-02-13] MEDS ORDERED: ETOMIDATE 40 MG/20 ML VIAL IV ONE (11:59)
[2021-02-13 12:15] VITALS: BP 160/74
[2021-02-13] MEDS ORDERED: rOPINIRole 4 MG TABLET PO SCH (21:00)
== END 2021-02-13 15:20 | disposition home health service (06) ==
LOC: N.EDINP 14:42 → N.ED 14:42 → SUATTDRO 17:46 → N.3E 18:28
PROVIDERS: ADMIT Internal Medicine; ATTEND Internal Medicine

== ENCOUNTER 2022-06-30 17:22 | Inpatient (IN) ==
[2022-06-30] MEDS ORDERED: cloNIDine 0.1 MG TABLET PO STA (18:32)
[2022-06-30] MEDS ORDERED: DEXAMETHASONE 4 MG/1 ML VIAL IV STA (18:32)
[2022-06-30 18:42] LABS: Basophils % 0.4 % (0.0-0.8); Eosinophils # 0.2 10*3/uL (0.0-0.87); Eosinophils % 3.8 % (0.00-10.9); Hematocrit 38.5 VOL% (35.7-47.0); Hemoglobin 11.6 GM/DL (12.0-16.0); Immature Granulocytes % 0.2 %; Immature Granulocytes Absolute 0.01 #; Lymphocytes % 38.7 % (21.3-54.2); Mean Corpuscular HGB Conc 30.1 GM/DL (32-36); Mean Corpuscular Volume 93.9 FL (87-102); Monocytes # 0.5 10*3/uL (0.11-0.8); Monocytes % 10.2 % (1.7-12.7); Neutrophils % 46.7 % (38.7-73.9); Platelet Count 242 T/CUMM (130-400); Red Cell Distribution Width 15.5 % (9.3-17.3); White Blood Count 5.2 T/CUMM (4-12)
[2022-06-30 19:01] LABS: Alanine Aminotransferase 15 U/L (13-56); Albumin 2.8 G/DL (3.4-5.0); Alkaline Phosphatase 103 U/L (45-117); Aspartate Amino Transferase 17 U/L (0-37); Bilirubin,Total < 0.39 MG/DL (0.20-1.00); Blood Urea Nitrogen 18 MG/DL (7-18); Carbon Dioxide 33 MMOL/L (21-32); Chloride 102 MMOL/L (98-107); Glucose 87 MG/DL (74-106); Osmolality,Calculated 273.8 MOS/KG (273-304); Potassium 3.7 MMOL/L (3.5-5.1); Sodium 137 MMOL/L (136-145); Total Protein 8.2 G/DL (6.4-8.2)
[2022-06-30] MEDS ORDERED: FUROSEMIDE 40 MG/4 ML VIAL IV STA (20:36)
[2022-06-30] MEDS ORDERED: hydrALAZINE 20 MG/1 ML VIAL IV STA (20:52)
[2022-06-30] MEDS ORDERED: niCARdipine INJ 25 MG in SODIUM CHLORIDE 0.9% 240 ML IV PRN (22:10)
[2022-06-30] MEDS ORDERED: LABETALOL 20 MG/4 ML SYRINGE IV STA (22:20)
[2022-07-01] MEDS ORDERED: ONDANSETRON 4 MG/2 ML VIAL IV PRN (00:11)
[2022-07-01] MEDS ORDERED: guaiFENesin/DM ER 600-30 MG TABLET PO PRN (00:11)
[2022-07-01] MEDS ORDERED: ALUMINUM/MAGNES/SIMETH MAX STR 30 ML UDCUP PO PRN (00:11)
[2022-07-01] MEDS ORDERED: NICOTINE 21 MG/24 HR PATCH TRANSDERM PRN (00:11)
[2022-07-01] MEDS ORDERED: ZALEPLON 5 MG CAPSULE PO PRN (00:11)
[2022-07-01] MEDS ORDERED: diphenhydrAMINE CAP 25 MG CAPSULE PO PRN (00:11)
[2022-07-01] MEDS: methylPREDNISolone SOD SUC 125 MG/2 ML VIAL IV SCH ×3 (00:46→17:23)
[2022-07-01] MEDS: AZITHROMYCIN INJ 500 MG in SODIUM CHLORIDE 0.9% 250 ML IV SCH (00:46)
[2022-07-01] MEDS ORDERED: PNEUMOCOCCAL VACCINE (20 VALENT) 0.5 ML SYRINGE IM ONE (03:30)
[2022-07-01] MEDS: MORPHINE 2 MG/1 ML SYRINGE IV PRN ×2 (03:50→12:17)
[2022-07-01 05:52] LABS: Basophils % 0.2 % (0.0-0.8); Hematocrit 38.1 VOL% (35.7-47.0); Hemoglobin 11.8 GM/DL (12.0-16.0); Immature Granulocytes % 0.3 %; Immature Granulocytes Absolute 0.02 #; Lymphocytes # 0.9 10*3/uL (1.4-4.0); Lymphocytes % 15.6 % (21.3-54.2); Mean Corpuscular Volume 92.7 FL (87-102); Mean Platelet Volume 9.6 FL (9.6-12.0); Monocytes # 0.1 10*3/uL (0.11-0.8); Neutrophils % 82.9 % (38.7-73.9); Platelet Count 239 T/CUMM (130-400); Red Blood Count 4.11 MC/CUMM (3.8-5.5); Red Cell Distribution Width 15.2 % (9.3-17.3); White Blood Count 5.9 T/CUMM (4-12)
[2022-07-01 06:21] LABS: Calcium 8.9 MG/DL (8.5-10.1); Osmolality,Calculated 277.1 MOS/KG (273-304); Potassium 3.6 MMOL/L (3.5-5.1)
[2022-07-01] MEDS: BISACODYL 5 MG TABLET PO SCH ×2 (08:29→08:54)
[2022-07-01] MEDS: PANTOPRAZOLE 40 MG TABLET PO SCH (08:29)
[2022-07-01] MEDS: FUROSEMIDE 40 MG/4 ML VIAL IV SCH ×2 (08:30→17:23)
[2022-07-01] MEDS: HEPARIN 5,000 UNIT/1 ML VIAL SUBCUT SCH ×2 (08:34→21:23)
[2022-07-01] MEDS: ACETAMINOPHEN 325 MG TABLET PO PRN (08:38)
[2022-07-01] MEDS ORDERED: PNEUMOCOCCAL VACCINE (13 VALENT) 0.5 ML SYRINGE IM ONE (09:00)
[2022-07-01] MEDS ORDERED: INFLUENZA VIRUS VACCINE 0.5 ML SYRINGE IM ONE (09:00)
[2022-07-01] MEDS: ALBUTEROL/IPRATROPIUM 3 ML NEB RESP TX SCH ×5 (09:14→19:42)
[2022-07-01] MEDS: hydrALAZINE 20 MG/1 ML VIAL IV PRN (12:00)
[2022-07-01] MEDS: CITALOPRAM 40 MG TABLET PO SCH (12:14)
[2022-07-01] MEDS: LOSARTAN 50 MG TABLET PO SCH (12:15)
[2022-07-01] MEDS ORDERED: NITROGLYCERIN SL 0.4 MG TABLET SL PRN ×2 (12:39→12:41)
[2022-07-01] MEDS ORDERED: MORPHINE 2 MG/1 ML SYRINGE IV PRN (12:41)
[2022-07-01] MEDS ORDERED: NITROGLYCERIN SL 0.4 MG TABLET SL ONE (12:41)
[2022-07-01] MEDS ORDERED: NITROGLYCERIN 2% OINT 1 INCH/GM PACK TOP ONE ×2 (12:41→12:52)
[2022-07-01 13:14] LABS: Alanine Aminotransferase 15 U/L (13-56); Albumin 2.7 G/DL (3.4-5.0); Alkaline Phosphatase 94 U/L (45-117); Aspartate Amino Transferase 16 U/L (0-37); Bilirubin,Total < 0.39 MG/DL (0.20-1.00); Blood Urea Nitrogen 27 MG/DL (7-18); Calcium 8.8 MG/DL (8.5-10.1); Carbon Dioxide 28 MMOL/L (21-32); Chloride 101 MMOL/L (98-107); Glucose 169 MG/DL (74-106); Potassium 3.5 MMOL/L (3.5-5.1); Sodium 136 MMOL/L (136-145); Total Protein 8.3 G/DL (6.4-8.2)
[2022-07-01] MEDS: rOPINIRole 4 MG TABLET PO SCH (21:23)
[2022-07-02] MEDS: ALBUTEROL/IPRATROPIUM 3 ML NEB RESP TX SCH ×6 (00:01→19:25)
[2022-07-02] MEDS: methylPREDNISolone SOD SUC 125 MG/2 ML VIAL IV SCH ×3 (00:59→16:50)
[2022-07-02] MEDS: AZITHROMYCIN INJ 500 MG in SODIUM CHLORIDE 0.9% 250 ML IV SCH (01:01)
[2022-07-02] MEDS: LOSARTAN 50 MG TABLET PO SCH (10:03)
[2022-07-02] MEDS: PANTOPRAZOLE 40 MG TABLET PO SCH (10:03)
[2022-07-02] MEDS: BISACODYL 5 MG TABLET PO SCH (10:03)
[2022-07-02] MEDS: CITALOPRAM 40 MG TABLET PO SCH (10:03)
[2022-07-02] MEDS: FUROSEMIDE 40 MG/4 ML VIAL IV SCH ×2 (10:04→16:49)
[2022-07-02] MEDS: HEPARIN 5,000 UNIT/1 ML VIAL SUBCUT SCH ×2 (10:04→22:35)
[2022-07-02] MEDS: hydrALAZINE 20 MG/1 ML VIAL IV PRN (17:47)
[2022-07-02] MEDS ORDERED: POLYETHYLENE GLYCOL POWDER 17 GM PACK PO PRN (19:40)
[2022-07-02] MEDS ORDERED: POLYETHYLENE GLYCOL POWDER 17 GM PACK PO ONE (19:41)
[2022-07-02] MEDS: guaiFENesin 200 MG/10 ML UDCUP PO PRN (22:35)
[2022-07-02] MEDS: rOPINIRole 4 MG TABLET PO SCH (22:54)
[2022-07-03] MEDS: ALBUTEROL/IPRATROPIUM 3 ML NEB RESP TX SCH ×7 (00:01→23:14)
[2022-07-03] MEDS: methylPREDNISolone SOD SUC 125 MG/2 ML VIAL IV SCH ×3 (00:41→17:01)
[2022-07-03] MEDS: AZITHROMYCIN INJ 500 MG in SODIUM CHLORIDE 0.9% 250 ML IV SCH (00:41)
[2022-07-03 05:01] LABS: Basophils % 0.1 % (0.0-0.8); Hematocrit 36.4 VOL% (35.7-47.0); Hemoglobin 11.2 GM/DL (12.0-16.0); Immature Granulocytes % 0.5 %; Immature Granulocytes Absolute 0.05 #; Lymphocytes # 0.5 10*3/uL (1.4-4.0); Lymphocytes % 5.6 % (21.3-54.2); Mean Corpuscular HGB Conc 30.8 GM/DL (32-36); Mean Corpuscular Volume 92.2 FL (87-102); Mean Platelet Volume 9.7 FL (9.6-12.0); Monocytes # 0.3 10*3/uL (0.11-0.8); Monocytes % 3.4 % (1.7-12.7); Neutrophils % 90.4 % (38.7-73.9); Platelet Count 241 T/CUMM (130-400); Red Blood Count 3.95 MC/CUMM (3.8-5.5); Red Cell Distribution Width 15.3 % (9.3-17.3); White Blood Count 9.2 T/CUMM (4-12)
[2022-07-03 05:27] LABS: Calcium 8.8 MG/DL (8.5-10.1); Osmolality,Calculated 292.1 MOS/KG (273-304); Potassium 3.8 MMOL/L (3.5-5.1)
[2022-07-03] MEDS: LOSARTAN 50 MG TABLET PO SCH (09:31)
[2022-07-03] MEDS: guaiFENesin 200 MG/10 ML UDCUP PO PRN ×2 (09:31→18:53)
[2022-07-03] MEDS: PANTOPRAZOLE 40 MG TABLET PO SCH (09:31)
[2022-07-03] MEDS: BISACODYL 5 MG TABLET PO SCH (09:31)
[2022-07-03] MEDS: HEPARIN 5,000 UNIT/1 ML VIAL SUBCUT SCH ×2 (09:31→21:56)
[2022-07-03] MEDS: CITALOPRAM 40 MG TABLET PO SCH (09:31)
[2022-07-03] MEDS: FUROSEMIDE 40 MG/4 ML VIAL IV SCH (09:32)
[2022-07-03] MEDS ORDERED: FUROSEMIDE 40 MG TABLET PO SCH (13:00)
[2022-07-03] MEDS: ACETAMINOPHEN 325 MG TABLET PO PRN (18:53)
[2022-07-03] MEDS: rOPINIRole 4 MG TABLET PO SCH (21:56)
[2022-07-04] MEDS: AZITHROMYCIN INJ 500 MG in SODIUM CHLORIDE 0.9% 250 ML IV SCH (01:35)
[2022-07-04] MEDS: methylPREDNISolone SOD SUC 125 MG/2 ML VIAL IV SCH ×2 (01:35→08:58)
[2022-07-04] MEDS: guaiFENesin 200 MG/10 ML UDCUP PO PRN ×2 (01:35→08:58)
[2022-07-04] MEDS: ALBUTEROL/IPRATROPIUM 3 ML NEB RESP TX SCH ×3 (02:18→12:07)
[2022-07-04 04:53] LABS: Basophils % 0.1 % (0.0-0.8); Hematocrit 36.3 VOL% (35.7-47.0); Immature Granulocytes % 0.6 %; Immature Granulocytes Absolute 0.05 #; Lymphocytes # 0.5 10*3/uL (1.4-4.0); Lymphocytes % 5.8 % (21.3-54.2); Mean Corpuscular HGB Conc 30.3 GM/DL (32-36); Mean Corpuscular Volume 92.6 FL (87-102); Mean Platelet Volume 9.4 FL (9.6-12.0); Monocytes # 0.4 10*3/uL (0.11-0.8); Neutrophils % 88.5 % (38.7-73.9); Platelet Count 231 T/CUMM (130-400); Red Blood Count 3.92 MC/CUMM (3.8-5.5); Red Cell Distribution Width 15.6 % (9.3-17.3); White Blood Count 8.3 T/CUMM (4-12)
[2022-07-04 05:17] LABS: Calcium 8.7 MG/DL (8.5-10.1); Osmolality,Calculated 293.1 MOS/KG (273-304)
[2022-07-04] MEDS: CITALOPRAM 40 MG TABLET PO SCH (08:57)
[2022-07-04] MEDS: PANTOPRAZOLE 40 MG TABLET PO SCH (08:57)
[2022-07-04] MEDS: ACETAMINOPHEN 325 MG TABLET PO PRN (08:57)
[2022-07-04] MEDS: BISACODYL 5 MG TABLET PO SCH (08:57)
[2022-07-04] MEDS: LOSARTAN 50 MG TABLET PO SCH (08:57)
[2022-07-04] MEDS: HEPARIN 5,000 UNIT/1 ML VIAL SUBCUT SCH (08:58)
[2022-07-04] MEDS ORDERED: FUROSEMIDE 40 MG TABLET PO SCH (09:00)
[2022-07-04 12:30] VITALS: BP 150/74
[2022-07-04] MEDS ORDERED: PNEUMOCOCCAL VACCINE (20 VALENT) 0.5 ML SYRINGE IM ONE (12:30)
== END 2022-07-04 13:29 | disposition home health service (06) | DRG 291 ==
LOC: N.ED 17:22 → N.EDINP 17:22 → SUATTDRO 07-01 00:11 → N.2W 07-01 01:18 → SUATTDRO 07-01 11:57 → N.TELEN 07-01 13:39
PROVIDERS: ADMIT Emergency Medicine; ATTEND Internal Medicine